=== PATIENT | male | born 1985 | race Caucasian/White ===

== ENCOUNTER 2022-02-23 16:33 | Emergency (ER) | payer MEDICAID ==
[~2022-02-23] VITALS: Ht 167.6 cm; Wt 83.9 kg
[2022-02-23 17:00] VITALS: BP_SYST 122
== END 2022-02-23 19:15 | disposition left against medical advice (07) ==
LOC: SED 16:33
DX: M79.604 Pain in right leg (principal); Z53.21 Procedure and treatment not carried out due to patient leaving prior to being seen by health care provider